=== PATIENT | female | born 1985 | race Caucasian/White ===

== ENCOUNTER 2018-01-13 03:15 | Emergency (ER) | payer MEDICAID ==
[~2018-01-13] VITALS: Ht 160 cm; Wt 61.8 kg
[2018-01-13 03:23] VITALS: BP 134/81
[2018-01-13] MEDS ORDERED: OSEL45CA PO (05:41)
[2018-01-13] MEDS ORDERED: ONDA4TAB9 SL (05:41)
[2018-01-13] MEDS ORDERED: TAM75C PO (05:43)
[2018-01-13] MEDS ORDERED: oseltamivir phos 75mg capsule PO ONE (05:45)
[2018-01-13] MEDS ORDERED: naproxen 500mg tablet PO ONE (05:55)
[2018-01-13] MEDS ORDERED: ALBU6.7H INH (06:11)
[2018-01-13] MEDS ORDERED: ipratropium/albuterol 3ml nebule NEB ONE (06:15)
== END 2018-01-13 06:52 | disposition home or self-care (01) ==
LOC: ER 03:15
DX: J09.X2 Influenza due to identified novel influenza A virus with other respiratory manifestations (principal); F17.210 Nicotine dependence, cigarettes, uncomplicated; Z71.6 Tobacco abuse counseling; Z79.899 Other long term (current) drug therapy
CPT/HCPCS: 87502; 87503; 94640; 94760; 99284; 99406